=== PATIENT | male | born 1960 | race Hispanic/Latino ===

== ENCOUNTER 2021-07-10 15:35 | Inpatient (IN) | payer SELFPAY ==
[~2021-07-10 15:35] MED LIST: Iopamidol-370 76% 500 ML 1 ML ONE
[2021-07-10 16:13] LABS: #Eosinphils 0.2 thou/uL (0.0-0.7); #Lymphocytes 1.4 thou/uL (1.20-3.40); #Monocytes 0.6 thou/uL (0.11-0.59); #Neutrophils 4.6 thou/uL (1.40-6.50); %Basophils 0.2 % (0.0-1.0); %Eosinophils 3.4 % (0.0-10.0); %Lymphocytes 20.1 % (21.0-51.0); %Monocytes 9.3 % (0.0-10.0); Hemoglobin 11.1 g/dL (14.0-18.0); Mean Corpuscular HGB CONC 33.6 g/dL (32.0-36.0); Mean Corpuscular Hemoglobin 34.9 pg (27.0-31.0); Mean Platelet Volume 8.3 fL (7.4-10.4); Platelet Count 113 thou/uL (130-400); RBC Distribution Width 13.4 % (11.5-14.5); Red Blood Cell (RBC) Count 3.17 mill/uL (4.70-6.10); White Blood Cell (WBC) Count 6.9 thou/uL (4.8-10.8)
[2021-07-10 16:57] LABS: ALT (SGPT) 47 U/L (8-55); AST (SGOT) 131 U/L (5-34); Albumin 2.8 g/dL (3.4-4.8); Alkaline Phosphatase 245 U/L (40-110); Anion Gap 14 mmol/L (10-20); BUN (Urea Nitrogen) 17 mg/dL (8.4-25.7); Bilirubin, Total 2.6 mg/dL (0.2-1.2); Calc. Creatinine Clearance 0 mL/min (70-130); Calcium 8.5 mg/dL (7.8-10.44); Carbon Dioxide 22 mmol/L (23-31); Chloride 105 mmol/L (98-107); Globulin 3.5 g/dL (2.4-3.5); Glucose 93 mg/dL (80-115); Potassium 4.6 mmol/L (3.5-5.1); Protein, Total 6.3 g/dL (5.8-8.1); Sodium 136 mmol/L (136-145)
[2021-07-10 18:19] LABS: INR-International Normal Ratio 1.2; Prothrombin Time 15.1 sec (12.0-14.7)
[2021-07-10 18:20] LABS: PTT 40.4 sec (22.9-36.1)
[2021-07-10] MEDS ORDERED: Acetaminophen 500 MG TAB PO PRN (20:40)
[2021-07-10] MEDS ORDERED: Ondansetron PF 4 MG/2 ML Vial IVP PRN (20:40)
[2021-07-10] MEDS ORDERED: Furosemide 20 MG/2 ML VIAL SLOW IVP SCH (22:15)
[2021-07-10] MEDS: Spironolactone 100 MG TAB PO SCH (22:22)
[2021-07-10] MEDS ORDERED: Acetaminophen 500 MG TAB ONE (22:26)
[2021-07-10] MEDS ORDERED: Furosemide 20 MG/2 ML VIAL ONE (22:26)
[2021-07-11 04:39] LABS: #Eosinphils 0.3 thou/uL (0.0-0.7); #Lymphocytes 1.4 thou/uL (1.20-3.40); #Monocytes 0.6 thou/uL (0.11-0.59); #Neutrophils 3.9 thou/uL (1.40-6.50); %Basophils 0.5 % (0.0-1.0); %Eosinophils 4.7 % (0.0-10.0); %Lymphocytes 22.4 % (21.0-51.0); %Monocytes 9.5 % (0.0-10.0); Hemoglobin 10.6 g/dL (14.0-18.0); Mean Corpuscular HGB CONC 33.5 g/dL (32.0-36.0); Mean Corpuscular Hemoglobin 34.7 pg (27.0-31.0); Mean Platelet Volume 8.6 fL (7.4-10.4); Platelet Count 116 thou/uL (130-400); RBC Distribution Width 13.4 % (11.5-14.5); Red Blood Cell (RBC) Count 3.05 mill/uL (4.70-6.10); White Blood Cell (WBC) Count 6.1 thou/uL (4.8-10.8)
[2021-07-11] MEDS ORDERED: Diazepam 5 MG TAB PO PRN (04:56)
[2021-07-11] MEDS ORDERED: Diazepam 5 MG TAB PO SCH (05:00)
[2021-07-11] MEDS ORDERED: Thiamine HCl 200 MG/2 ML VIAL IM SCH (05:00)
[2021-07-11 05:03] LABS: ALT (SGPT) 44 U/L (8-55); AST (SGOT) 118 U/L (5-34); Albumin 2.9 g/dL (3.4-4.8); Alkaline Phosphatase 235 U/L (40-110); Anion Gap 10 mmol/L (10-20); BUN (Urea Nitrogen) 14 mg/dL (8.4-25.7); Bilirubin, Total 2.7 mg/dL (0.2-1.2); Calc. Creatinine Clearance 197 mL/min (70-130); Calcium 8.3 mg/dL (7.8-10.44); Carbon Dioxide 25 mmol/L (23-31); Chloride 104 mmol/L (98-107); Globulin 2.9 g/dL (2.4-3.5); Glucose 86 mg/dL (80-115); Potassium 3.9 mmol/L (3.5-5.1); Protein, Total 5.8 g/dL (5.8-8.1); Sodium 135 mmol/L (136-145)
[2021-07-11 05:17] LABS: HBCM Index 0.09 S/CO (0-0.79); HBSAg Index 0.18 S/CO (0-0.99); Hep A IgM AB Non-Reactive (NonReactive); Hep A IgM S/CO 0.22 S/CO (0-0.79); Hep B Surf Ag Non-Reactive S/CO (NonReactive); Hep C IgG Ab Non-Reactive (NonReactive); Hep C Index 0.05 S/CO (0-0.79); Hepatitis B Core IgM Abs Non-Reactive (NonReactive)
[2021-07-11] MEDS ORDERED: Diazepam 5 MG TAB ONE (05:34)
[2021-07-11] MEDS: Furosemide 20 MG/2 ML VIAL SLOW IVP SCH ×2 (05:45→12:02)
[2021-07-11] MEDS ORDERED: Furosemide 20 MG/2 ML VIAL ONE ×2 (05:51→08:59)
[2021-07-11] MEDS ORDERED: Enoxaparin Sodium 30 MG/0.3 ML SYRINGE ONE (08:59)
[2021-07-11] MEDS ORDERED: Thiamine 100 MG TAB ONE (08:59)
[2021-07-11] MEDS ORDERED: Folic Acid 1 MG TAB PO SCH (09:00)
[2021-07-11] MEDS ORDERED: Enoxaparin Sodium 30 MG/0.3 ML SYRINGE SC SCH (09:00)
[2021-07-11] MEDS ORDERED: Multivitamin W/ Minerals 1 TAB PO SCH (09:00)
[2021-07-11] MEDS: Folic Acid 1 MG TAB PO SCH (10:01)
[2021-07-11] MEDS: Thiamine 100 MG TAB PO SCH (10:02)
[2021-07-11] MEDS: Multivitamin W/ Minerals 1 TAB PO SCH (10:02)
[2021-07-11] MEDS: Spironolactone 100 MG TAB PO SCH (10:05)
[2021-07-11 11:47] LABS: SARS-CoV-2 PCR by NAA Not Detected (NotDetected)
[2021-07-11 15:25] VITALS: BMI 29.9
[2021-07-11] MEDS ORDERED: Ibuprofen 200 MG TAB PO PRN (22:20)
[2021-07-11] MEDS ORDERED: Melatonin 3 MG TAB PO PRN (22:20)
[2021-07-12] MEDS ORDERED: Diazepam 5 MG TAB PO PRN (04:00)
[2021-07-12 04:23] LABS: #Eosinphils 0.3 thou/uL (0.0-0.7); #Lymphocytes 1.4 thou/uL (1.20-3.40); #Monocytes 0.5 thou/uL (0.11-0.59); #Neutrophils 4.1 thou/uL (1.40-6.50); %Basophils 0.4 % (0.0-1.0); %Eosinophils 4.9 % (0.0-10.0); %Lymphocytes 22.5 % (21.0-51.0); %Monocytes 8.4 % (0.0-10.0); %Neutrophils 63.8 % (42.0-75.0); Hemoglobin 10.6 g/dL (14.0-18.0); Mean Corpuscular HGB CONC 33.2 g/dL (32.0-36.0); Mean Corpuscular Hemoglobin 34.9 pg (27.0-31.0); Mean Platelet Volume 8.5 fL (7.4-10.4); Platelet Count 135 thou/uL (130-400); RBC Distribution Width 13.5 % (11.5-14.5); Red Blood Cell (RBC) Count 3.05 mill/uL (4.70-6.10); White Blood Cell (WBC) Count 6.3 thou/uL (4.8-10.8)
[2021-07-12 04:38] LABS: ALT (SGPT) 46 U/L (8-55); AST (SGOT) 134 U/L (5-34); Albumin 2.9 g/dL (3.4-4.8); Alkaline Phosphatase 260 U/L (40-110); Anion Gap 11 mmol/L (10-20); BUN (Urea Nitrogen) 16 mg/dL (8.4-25.7); Bilirubin, Total 2.7 mg/dL (0.2-1.2); Calc. Creatinine Clearance 170 mL/min (70-130); Calcium 8.4 mg/dL (7.8-10.44); Carbon Dioxide 25 mmol/L (23-31); Chloride 104 mmol/L (98-107); Globulin 3.1 g/dL (2.4-3.5); Glucose 103 mg/dL (80-115); Iron 127 ug/dL (65-175); Iron Binding Capacity, Total 193 mcg/dL (261-462); Potassium 4.1 mmol/L (3.5-5.1); Sodium 136 mmol/L (136-145)
[2021-07-12 05:21] LABS: CEA, Serum 8.23 ng/mL (< or = 5.0); Ferritin 381.48 ng/mL (22-322)
[2021-07-12] MEDS: Furosemide 20 MG/2 ML VIAL SLOW IVP SCH ×2 (05:50→17:12)
[2021-07-12] MEDS ORDERED: Spironolactone 100 MG TAB PO SCH (09:00)
[2021-07-12] MEDS ORDERED: Sodium Bicarbonate 2.5 MEQ/5 ML VIAL ONE (09:39)
[2021-07-12] MEDS ORDERED: Lidocaine 1% PF 5 ML VIAL ONE (09:39)
[2021-07-12 11:47] LABS: RBC Count-Automated (BF) 215 /cu.mm; WBC/Nucleated-Auto (BF) 480 uL
[2021-07-12 11:51] LABS: BF Color Yellow; Body Fluid Source Ascites Body Fluid; Clarity Hazy (Clear); Tube # EDTA
[2021-07-12 12:18] LABS: BF Segmented Neutrophils 2 %; Cell Count Non Hematic 72 %; Lymphocytes 26 %
[2021-07-12] MEDS: Folic Acid 1 MG TAB PO SCH (14:36)
[2021-07-12] MEDS: Thiamine 100 MG TAB PO SCH (14:37)
[2021-07-12] MEDS: Magnesium Oxide 400 MG TAB PO SCH (14:37)
[2021-07-12] MEDS: Multivitamin W/ Minerals 1 TAB PO SCH (14:37)
[2021-07-12] MEDS: traMADol HCl 50 MG TAB PO PRN (19:34)
[2021-07-13] MEDS: traMADol HCl 50 MG TAB PO PRN ×3 (04:03→20:17)
[2021-07-13] MEDS ORDERED: Furosemide 40 MG/4 ML VIAL SLOW IVP SCH ×2 (06:00→11:30)
[2021-07-13 08:09] LABS: Anion Gap 5 mmol/L (10-20); BUN (Urea Nitrogen) 14 mg/dL (8.4-25.7); Calc. Creatinine Clearance 173 mL/min (70-130); Calcium 8.3 mg/dL (7.8-10.44); Carbon Dioxide 31 mmol/L (23-31); Chloride 102 mmol/L (98-107); Glucose 102 mg/dL (80-115); Potassium 4.3 mmol/L (3.5-5.1); Sodium 134 mmol/L (136-145)
[2021-07-13] MEDS: Magnesium Oxide 400 MG TAB PO SCH (08:16)
[2021-07-13] MEDS: Spironolactone 100 MG TAB PO SCH (08:16)
[2021-07-13] MEDS: Folic Acid 1 MG TAB PO SCH (08:16)
[2021-07-13] MEDS: Multivitamin W/ Minerals 1 TAB PO SCH (08:17)
[2021-07-13] MEDS: Thiamine 100 MG TAB PO SCH (08:17)
[2021-07-13] MEDS ORDERED: Furosemide 40 MG TAB PO SCH (09:00)
[2021-07-14] MEDS: traMADol HCl 50 MG TAB PO PRN ×2 (10:26→19:16)
[2021-07-14] MEDS: Multivitamin W/ Minerals 1 TAB PO SCH (10:28)
[2021-07-14] MEDS: Spironolactone 100 MG TAB PO SCH (10:29)
[2021-07-14] MEDS: Thiamine 100 MG TAB PO SCH (10:29)
[2021-07-14] MEDS: Magnesium Oxide 400 MG TAB PO SCH (10:29)
[2021-07-14] MEDS: Folic Acid 1 MG TAB PO SCH (10:29)
[2021-07-14] MEDS: Furosemide 40 MG/4 ML VIAL SLOW IVP SCH (13:14)
[2021-07-14 19:36] LABS: Smooth Muscle Total ABS 12 Units (0-19)
[2021-07-15] MEDS: traMADol HCl 50 MG TAB PO PRN ×2 (01:05→08:25)
[2021-07-15 04:51] LABS: Anion Gap 9 mmol/L (10-20); BUN (Urea Nitrogen) 14 mg/dL (8.4-25.7); Calc. Creatinine Clearance 158 mL/min (70-130); Calcium 8.6 mg/dL (7.8-10.44); Carbon Dioxide 28 mmol/L (23-31); Chloride 100 mmol/L (98-107); Glucose 111 mg/dL (80-115); Sodium 133 mmol/L (136-145)
[2021-07-15 05:12] LABS: Thyroid Stimulating Hormone 3.4542 uIU/mL (0.35-4.94)
[2021-07-15] MEDS: Folic Acid 1 MG TAB PO SCH (08:25)
[2021-07-15] MEDS: Multivitamin W/ Minerals 1 TAB PO SCH (08:25)
[2021-07-15] MEDS: Magnesium Oxide 400 MG TAB PO SCH (08:25)
[2021-07-15] MEDS: Spironolactone 100 MG TAB PO SCH (08:25)
[2021-07-15] MEDS: Furosemide 40 MG/4 ML VIAL SLOW IVP SCH (08:26)
[2021-07-15] MEDS: Thiamine 100 MG TAB PO SCH (08:27)
[2021-07-15 10:07] VITALS: BP 127/59; TEMP 98.2
[2021-07-15 13:28] LABS: ANA Symphony (Qualitative) Negative (Negative); ANA Symphony (Quantitative) 0.2 Ratio (< 0.7 Negative); EliA Vaculitis New Method **** NEW METHOD ****; Mitochondrial Ab 1.4 U/mL (<4 Negative); dsDNA IgG Antibody 2.4 IU/mL (<10 Negative)
[2021-07-18 15:38] LABS: A1 Antitrypsin Phenotype Inter MS (.); Alpha-1-Antitrypsin 179 mg/dL (101-187)
== END 2021-07-15 13:00 | disposition home or self-care (01) | DRG 432 ==
LOC: ERS 15:35 → ONC 20:10 → ERHOLD 20:21 → ONC 07-11 14:23 → OBSVTOIN 07-11 17:01
PROVIDERS: ADMIT Internal Medicine; ATTEND Internal Medicine
PROC: 0W9G3ZZ Drainage of Peritoneal Cavity, Percutaneous Approach (ICD-10-PCS; principal; 2021-07-12)
DX: K70.31 Alcoholic cirrhosis of liver with ascites (principal); I81 Portal vein thrombosis; C22.0 Liver cell carcinoma; K76.6 Portal hypertension; E87.1 Hypo-osmolality and hyponatremia; J90 Pleural effusion, not elsewhere classified; Z20.822 Contact with and (suspected) exposure to COVID-19; M79.672 Pain in left foot; F10.10 Alcohol abuse, uncomplicated; F41.9 Anxiety disorder, unspecified; F32.9 Major depressive disorder, single episode, unspecified; F17.210 Nicotine dependence, cigarettes, uncomplicated; E87.70 Fluid overload, unspecified; K31.89 Other diseases of stomach and duodenum; D69.59 Other secondary thrombocytopenia; K80.20 Calculus of gallbladder without cholecystitis without obstruction; D63.8 Anemia in other chronic diseases classified elsewhere
CPT/HCPCS: 36415; 49083; 71045; 74177; 80048; 80053; 80074; 81256; 82042; 82103; 82104; 82105; 82378; 82390; 82607; 82728; 82746; 83516; 83540; 83550; 83880; 84157; 84443; 84484; 85025; 85060; 85610; 85730; 86038; 86225; 86301; 87070; 87205; 88112; 88305; 89051; 93005; 93306; 94640; 96372; 96374; 96375; 96376; G0378; J1650; J1940; J3411; J3475; J3490; J7620; Q9967; U0003; U0005